=== PATIENT | female | born 1995 | race Caucasian/White ===

== ENCOUNTER 2021-02-20 09:58 | Outpatient (CLI) | payer BC, SELFPAY ==
--- NOTE | 2021-02-20 10:05 | EST_ITS ---
Patient Info Name: Ange Mallory Age: 25 years : 1995 Gender: Female Ht: 67 in Wt: 200 lbs BSA: 2.10 m2 HR: 75 bpm BP: 113 / 69 mmHg Heart Rhythm: Sinus Rhythm Exam Date: 02/20/2021 10:14 AM Exam Location: [facility] Patient Status: Outpatient Admit Date: 02/20/2021 Staff Ordering Physician: Juanita Fishman Attending Provider: Juanita Fishman Exercise Technologist: Itzel Guaman CT Exercise Physician: Kai Mendoza DO Exam Type: CA stress test treadmill Study Info Indications R07.9 - Chest pain, unspecified An exercise stress test was performed. Summary 1. 1. Negative [facility] exercise stress test for ischemic ST changes by ECG criteria. 2. 2. Good functional capacity, achieving 10 METs of workload. 3. 3. Appropriate HR response to exercise. 4. 4. Appropriate HR recovery at 1 minute post exercise. 5. 5. No imaging with stress testing. 6. 6. Patient informed of the above results. Protocol: [facility] Stress ECG Details Stage: REST Duration (min): 1 min : 4 sec Speed (mph): 0.0 Grade (%): 0 HR (bpm): 81 SBP (mmHg): 113 DBP (mmHg): 69 METS: --- Stage: REST Duration (min): 5 min : 41 sec Speed (mph): 0.0 Grade (%): 0 HR (bpm): 95 SBP (mmHg): 113 DBP (mmHg): 69 METS: --- Stage: STAGE 1 Duration (min): 1 min : 0 sec Speed (mph): 1.7 Grade (%): 10 HR (bpm): 124 SBP (mmHg): 113 DBP (mmHg): 69 METS: --- Stage: STAGE 1 Duration (min): 2 min : 0 sec Speed (mph): 1.7 Grade (%): 10 HR (bpm): 142 SBP (mmHg): 113 DBP (mmHg): 69 METS: --- Stage: STAGE 1 Duration (min): 3 min : 0 sec Speed (mph): 1.7 Grade (%): 10 HR (bpm): 149 SBP (mmHg): 113 DBP (mmHg): 69 METS: --- Stage: STAGE 2 Duration (min): 1 min : 0 sec Speed (mph): 2.5 Grade (%): 12 HR (bpm): 152 SBP (mmHg): 113 DBP (mmHg): 69 METS: --- Stage: STAGE 2 Duration (min): 2 min : 0 sec Speed (mph): 2.5 Grade (%): 12 HR (bpm): 157 SBP (mmHg): 152 DBP (mmHg): 67 METS: --- Stage: STAGE 2 Duration (min): 3 min : 0 sec Speed (mph): 2.5 Grade (%): 12 HR (bpm): 161 SBP (mmHg): 152 DBP (mmHg): 67 METS: --- Stage: STAGE 3 Duration (min): 1 min : 0 sec Speed (mph): 3.4 Grade (%): 14 HR (bpm): 165 SBP (mmHg): 168 DBP (mmHg): 61 METS: --- Stage: STAGE 3 Duration (min): 2 min : 0 sec Speed (mph): 3.4 Grade (%): 14 HR (bpm): 165 SBP (mmHg): 168 DBP (mmHg): 61 METS: --- Stage: STAGE 3 Duration (min): 3 min : 0 sec Speed (mph): 3.4 Grade (%): 14 HR (bpm): 165 SBP (mmHg): 168 DBP (mmHg): 61 METS: --- Stage: RECOVERY Duration (min): 1 min : 0 sec Speed (mph): 0.0 Grade (%): 0 HR (bpm): 138 SBP (mmHg): 181 DBP (mmHg): 82 METS: ---
== END 2021-02-20 09:59 | disposition home or self-care (01) ==
LOC: ANHCARD 10:02
PROVIDERS: PCP Internal Medicine; Visit Provider Nurse Practitioner
DX: R07.9 Chest pain, unspecified (principal)
CPT/HCPCS: 93017

== ENCOUNTER 2022-09-15 16:53 | Emergency (ER) | payer BC, SELFPAY ==
--- NOTE | ~2022-09-15 | US_ITS ---
EXAMINATION: US OB <=14 wk fetus w TV INDICATION: pelvic pain, 5 weeks TECHNIQUE: Sonography of the pelvis was performed by transabdominal and transvaginal techniques. COMPARISON: None. RESULT: Uterus: Orientation: Retroverted. Some 0.9 x 4.6 x 5.0 cm. Myometrium: homogeneous echogenicity. The cervix is long and closed. Intrauterine gestational sac: Single present. Yolk sac: Present, not di rectly measured. Embryo: Single present. [place] rump length: 0.42 cm, corresponding gestational age 6 weeks, 1 days. Gestational heart rate: present 118 bpm. Subgestational hematoma: 6 x 4 mm x 7 hyp oechoic collection anterior to the gestational sac. 3 x 10 x 4 mm hypoechoic collection posterior to the gestational sac . Right ovary: 2.3 x 2.7 x 2.3 cm. Normal sonographic appearance with physiologic follicles. Resolvin g corpus luteal cyst. No adnexal mass. Small volume right adnexal fluid. Left ovary: 1.7 x 2.5 x 1.9 cm. Normal sonographic appearance with physiologic follicles. No adnex al mass. Pelvis free fluid: Small volume free fluid is likely physiologic. IMPRESSION: Single, live intrauterine gestation. 7 mm subdural gestational hematoma anterior to the gestational s ac. 10 mm subdural gestational hematoma posterior to the gestational sac. Estimated Gestational Age: 6 weeks, 1 days by crown rump length. SHANDA by ultrasound 05/10/2023. Reviewed, dictated and finalized at location [facility]. IMPRESSION: Single, live intrauterine gestation. 7 mm subdural gestational hematoma anterio r to the gestational sac. 10 mm subdural gestational hematoma posterior to the gestational sac. Estimated Gestational Age: 6 weeks, 1 days by crown rump length. SHANDA by ultras ound 05/10/2023.
[2022-09-15 16:55] VITALS: BP 141/67; PULSE 99; RESP 18; TEMP 36.9; O2SAT 99
--- NOTE | 2022-09-15 17:27 | ED.ABDPAIN ---
HPI - Abdominal Pain General Chief Complaint: Abdominal Pain <Mallika Lomax PA-C - Last Filed: 09/16/22 03:07> Stated Complaint: Miscarriage <Mallika Lomax PA-C - Last Filed: 09/16/22 03:07> Time Seen by Provider: 09/15/22 17:04 <Mallika Lomax PA-C - Last Filed: 09/16/22 03:07> History of Present Illness HPI narrative: 26-year-old female, , currently 5 weeks , LMP 5/16 reports for evaluation of left lower quadrant and suprapubic pelvic pain. Patient states the pain has been intermittent for the past 2 weeks and is sharp in nature with associated left lower back cramping. She reports because she is concerned she is having a miscarriage. She denies vaginal bleeding, discharge, concern for STDs, vomiting. She does report feeling nauseous this morning. Denies chest pain or shortness of breath, cough or congestion, fever, dysuria or hematuria lightheadedness or syncope. Her last was an uncomplicated vaginal delivery and uncomplicated . She is also complaining of right breast pain that has been going on intermittently for the past 4 months. States 4 months ago she noticed a lump near her areola with red streaking that spontaneously resolved after 1 week. States she did not have any breast pain for a few months, then began having tenderness to the superior aspect of her right breast approximately 2 months ago. She denies overlying skin changes, nipple discharge, inverted nipple, known family history of breast cancer. She is not able to associate the pain with her menstrual cycle or . She does not have an OBGYN. <Mallika Lomax PA-C - Last Filed: 09/16/22 03:07> Related Data Allergies/Adverse Reactions: Allergies Allergy/AdvReac Type Severity Reaction Status Date / Time sertraline AdvReac Nausea Verified 09/15/22 17:11 <Mallika Lomax PA-C - Last Filed: 09/16/22 03:07> Review of Systems Review of Systems: CONSTITUTIONAL: Denies fever, chills EYES: Denies visual changes, redness, or discharge. ENT: Denies rhinorrhea, congestion, sore throat, or otalgia. CARDIOVASCULAR: Denies chest pain, palpitations, or edema. RESPIRATORY: Denies cough or dyspnea. GASTROINTESTINAL: See HPI GENITOURINARY: Denies dysuria or hematuria. SKIN: Denies rash or itching. MUSCULOSKELETAL: See HPI NEUROLOGIC: Denies headache, numbness, dizziness, or weakness. PSYCHIATRIC: Denies anxiety or depression. <Mallika Lomax PA-C - Last Filed: 09/16/22 03:07> [facility] Past Medical History Medical History: Medical History Anxiety Change in weight Depression Difficulty sleeping Dizziness Headache Heat intolerance Memory change Menorrhagia Seizure Urinary incontinence <Mallika Lomax PA-C - Last Filed: 09/16/22 03:07> Family History Family History: Family History Father Diabetes mellitus Hypertension Mother Alcoholism Asthma Sibling Cancer Tumor Grandparent Diabetes mellitus Hypertension Grandparent Asthma Hypertension Cerebrovascular accident Heart problem <Mallika Lomax PA-C - Last Filed: 09/16/22 03:07> Social History Social History: Social History Smoking packs per day: 0.3 Smoking cigarettes per day: 6.0 Years smoked: 15 Smoking pack-years: 4.50 Smoking status: Former smoker Second hand tobacco smoke exposure: No Smoking end date: 12/09/20 Alcohol intake: current Alcohol use details: social Substance use: current Substance use type: marijuana <Mallika Lomax PA-C - Last Filed: 09/16/22 03:07> Exam Narrative: GENERAL: Well-appearing, in no acute distress. Patient resting comfortably exam bed. She is pleasant and conversational. HEAD: Normocephalic EYES: PERRLA ENT: Nares clear. Mucous membranes moist. O
[2022-09-15] MEDS: SODIUM CHLORIDE 0.9% IV 1,000 ML 999 ML IV CONT (17:35)
[2022-09-15] MEDS: ACETAMINOPHEN 500 MG TABLET 1000 MG PO (17:37)
[2022-09-15 17:42] LABS: Basophils Absolute Auto 0.1 K/mm3 (0.0-0.1); Basophils Percent Auto 0.7 % (0.2-1.2); Eosinophils Absolute Auto 0.2 K/mm3 (0-0.3); Eosinophils Percent Auto 2.7 % (0-4.4); Hematocrit 38.1 % (37.0-47.0); Hemoglobin 12.7 g/dL (12.0-15.0); Immature Granulocyte Absolute 0.02 K/mm3 (0.00-0.031); Immature Granulocyte Percent A 0.2 % (0-0.5); Lymphocytes Absolute Auto 2.47 K/mm3 (0.9-3.2); Lymphocytes Percent Auto 28.8 % (18.3-44.2); Mean Corpuscular HGB Conc 33.3 g/dl (32-36); Mean Corpuscular Hemoglobin 32.2 pg (26-34); Mean Corpuscular Volume 96.5 fl (80-100); Mean Platelet Volume 9.3 fl (7.4-10.4); Monocytes Absolute Auto 0.9 K/mm3 (0.1-0.6); Monocytes Percent Auto 10.1 % (2.6-8.5); Neutrophils Absolute Auto 4.9 K/mm3 (1.3-6.7); Neutrophils Percent Auto 57.5 % (45.5-73.1); Platelet Count Result 241 k/mm3 (150-375); Red Blood Count 3.95 M/mm3 (4.2-5.4); White Blood Count 8.6 K/mm3 (4.5-10.0)
[2022-09-15 17:46] LABS: Appearance Urine Clear (Clear); Bacteria Urine 1+ /hpf; Bilirubin Urine Negative (Negative); Blood Urine Negative (Negative); Color Urine Yellow (Yellow); Glucose Urine UA Negative (Negative); Ketones Urine Trace mg/dL (Negative); Leukocyte Esterase Ur Trace LEU/UL (Negative); Nitrate Urine Negative (Negative); Non Pathogenic Casts 0-2; Protein Urine Negative (Negative); RBC Urine 0-2 /hpf (0-2); Specific Grav Ur 1.012 (1.001-1.035); Squamous Epithelial Cell Urine Few /hpf (Few); WBC Urine 0-5 /hpf
[2022-09-15 17:50] LABS: Add Urine Microscopic? YES
[2022-09-15 17:52] LABS: Alanine Aminotransferase 26 U/L (6-35); Albumin Level 4.1 g/dL (3.5-5.1); Alkaline Phosphatase 55 U/L (38-126); Anion Gap 3 mmol/L (8-16); Aspartate Amino Transferase 25 U/L (14-36); Bilirubin,Total 0.4 mg/dL (0.2-1.3); Blood Urea Nitrogen 6 mg/dL (7-17); Calcium 8.7 mg/dL (8.4-10.2); Carbon Dioxide 26 mmol/L (22-30); Chloride 106 mmol/L (98-107); Estimated Glomerular Filt Rate > 60; Glucose 87 mg/dL (65-110); Potassium 3.6 mmol/L (3.4-5.0); Sodium 135 mmol/L (137-145)
[2022-09-15 17:55] LABS: Partial Thromboplastin Time 34.6 SECONDS (22.3-36.8)
--- NOTE | 2022-09-15 18:08 | PC.NURSE ---
Pt to US via wheelchair at this time
[2022-09-15 18:51] VITALS: BP 127/66; PULSE 79; RESP 15; O2SAT 97
[2022-09-15] MEDS: RHO(D) IMMUNE GLOBULIN 300 MCG/2 ML SYRINGE IM (20:21)
[2022-09-15] MEDS: CEPHALEXIN 500 MG CAPSULE PO (20:24)
[2022-09-15 20:44] VITALS: BP 132/74; PULSE 78; RESP 15; O2SAT 100
== END 2022-09-15 20:46 | disposition home or self-care (01) ==
PROVIDERS: Emergency Provider Physician Assistant
DX: O23.41 Unspecified infection of urinary tract in pregnancy, first trimester (principal); N39.0 Urinary tract infection, site not specified; O26.891 Other specified pregnancy related conditions, first trimester; R10.32 Left lower quadrant pain; Z87.891 Personal history of nicotine dependence; O46.8X1 Other antepartum hemorrhage, first trimester; Z3A.01 Less than 8 weeks gestation of pregnancy
CPT/HCPCS: 36415; 76801; 76817; 80053; 81001; 84702; 85025; 85461; 85610; 85730; 86850; 86900; 86901; 90384; 96360; 96372; 99284; A9270; J2790; J7030